=== PATIENT | female | born 1970 | race Caucasian/White ===

== ENCOUNTER 2022-05-01 13:56 | Outpatient (CLI) | payer BC, SELFPAY ==
--- NOTE | 2022-05-01 14:00 | CRLHL7_ITS ---
For Patients: As a result of the Century Cures Act, medical imaging exams and procedure reports are released immediately into your electronic medical record. You may view this report before your referring provider. If you have questions, please contact your health care provider. INDICATION: POST COITAL BLEEDING; EVAL FOR POSTMENOPAUSAL ABNORMALITY COMPARISON: none TECHNIQUE: 2D baez scale and color Doppler images were acquired of the pelvis using a transabdominal and transvaginal approach. FINDINGS: Sonographic images demonstrate a normal size and smooth outer contour of the uterus. Uterus measures 5.2 cm in length by 3.5 cm in AP diameter by 4.9 cm in transverse dimension. The myometrium has a normal uniform echotexture. The endometrial lining measures 10 mm in composite thickness. The right ovary measures 5.9 x 3.2 x 3.9 cm in size and the left ovary is not visualized. The right ovary demonstrates normal arterial and venous blood flow on color Doppler analysis. There is a simple anechoic right ovarian cyst measuring 3.5 x 2.5 x 4.0 cm. There are no suspicious fluid collections within the cul-de-sac. IMPRESSION: Endometrium is heterogeneous and measures 10 millimeters. 4 centimeter right ovarian cyst. Dictated by Ivan Gary MD @ 05/02/2022 8:58:20 AM (Electronically Signed)
== END 2022-05-01 13:57 | disposition home or self-care (01) ==
PROVIDERS: PCP Physician Assistant Medical; Visit Provider Physician Assistant Medical
DX: N93.0 Postcoital and contact bleeding (principal); N83.291 Other ovarian cyst, right side; N95.0 Postmenopausal bleeding
CPT/HCPCS: 76830; 76856

== ENCOUNTER 2022-05-04 10:58 | Outpatient (CLI) | payer BC, SELFPAY | END 2022-05-04 10:59 | disposition home or self-care (01) | LOC: LKVREF 05-05 10:55 | PROVIDERS: PCP Physician Assistant Medical; Visit Provider Physician Assistant Medical | DX: N95.0 Postmenopausal bleeding (principal); N83.201 Unspecified ovarian cyst, right side | CPT/HCPCS: 87086; 87186 ==

== ENCOUNTER 2022-05-24 16:55 | Outpatient (CLI) | payer BC, SELFPAY | END 2022-05-24 16:56 | disposition home or self-care (01) | LOC: LKVREF 16:57 | PROVIDERS: PCP Physician Assistant Medical; Visit Provider Physician Assistant Medical | DX: Z01.818 Encounter for other preprocedural examination (principal); R31.9 Hematuria, unspecified | CPT/HCPCS: 87086 ==

== ENCOUNTER 2022-05-31 10:20 | Day surgery (SDC) | payer BC, SELFPAY ==
[2022-05-31] MEDS: LACTATED RINGERS 1000 ML 1,000 ML 100 ML IV (09:00)
[2022-05-31 10:40] VITALS: BP 153/91; PULSE 98; RESP 16; TEMP 36.6; O2SAT 97
[2022-05-31 11:00] VITALS: BMI 34.9
[2022-05-31] MEDS: BUPIVACAINE 0.5% 30 ML INJECTION (12:50)
--- NOTE | 2022-05-31 13:11 | W.ANESCHARGE ---
Anesthesia Charges Start Date/Time Anesthesia Start Date: 05/31/22 Anesthesia Start Time: 12:25 Stop Date/Time Anesthesia Stop Date: 05/31/22 Anesthesia Stop Time: 13:06 Summary Emergency: No
[2022-05-31 13:15] VITALS: BP 123/76; PULSE 85; RESP 16; TEMP 36.9; O2SAT 96
--- NOTE | 2022-05-31 13:15 | W.PM.GYNPROC ---
Procedure Note Date Seen: 05/31/22 Procedure Details: Preop diagnosis: Postmenopausal bleeding Postop diagnosis: Postmenopausal bleeding Name of procedure: Hysteroscopy, dilation and curettage Surgeon: Gurwinder Rojas MD Clinical Education Specialist: None Complications: None EBL: 5 mL Drains: None Findings: Bimanual exam: Antevereted uterus of about 7cm, regular contour, no adnexal masses. Intrauterine cavity: Bilateral cornual openings seen, polypoid lesion seen at the fundal area of the uterus. Patient was taken to the OR were MAC anesthesia was administered without difficulty. She was placed in the dorsal lithotomy position with Charly type stirrups. An exam under anesthesia as described above. Patient was then prepared and draped in the normal sterile fashion. A bivalved speculum was inserted in the posterior aspect of the vagina. 0.25% Bupivacaine was injected at 2 and 11 o'clock a total of about 5mL utilized. A single-tooth tenaculum was used to grasp the anterior lip of the cervix. The uterus was carefully sounded to 7 cm. The cervical os was sequentially dilated to accommodate the 5 mm TrueClear hysteroscope using Hegar dilators. A 5 mm 30 degree TrueClear hysteroscope was introduced under direct visualization, and the uterus was distended with normal saline. Findings as above. Soft tissue incisor blade from TrueClear hysteroscope system was introduced under direct visualization and endometrial curettings performed with removal of polypoid lesion. Hysteroscope removed under direct visualization. Tenaculum was removed from the cervix and good hemostasis was noted at puncture sites. Patient tolerated the procedure well. Instrument and sponge counts were correct x2. The patient was awakened from MAC anesthesia and taken to the recovery room in a stable condition. The patient will go home after recovering from anesthesia and meeting all the criteria for discharge. She was given instruction regarding follow-up visit in 2 weeks at [facility] and instructions for pain medication. Fluid deficit: 100mL
[2022-05-31 13:44] VITALS: BP 142/90; PULSE 82; RESP 16; O2SAT 97
== END 2022-05-31 13:47 | disposition home or self-care (01) ==
PROVIDERS: PCP Physician Assistant Medical; Visit Provider Obstetrics & Gynecology
PROC: 0UDB8ZZ Extraction of Endometrium, Via Natural or Artificial Opening Endoscopic (ICD-10-PCS; CPT 58558; principal; 2022-05-31 11:45)
DX: N95.0 Postmenopausal bleeding (principal); N84.0 Polyp of corpus uteri
CPT/HCPCS: 58558; 00952; 36415; 84703; 85018; 88305; J1100; J2250; J2405; J2704; J3010; J3490; J7120

== ENCOUNTER 2022-08-07 11:11 | Outpatient (CLI) | payer BC, SELFPAY ==
[2022-08-07 13:44] LABS: Albumin* 4.3 g/dL (3.3-5.0)
[2022-08-07 13:47] LABS: Alkaline Phosphatase* 83 U/L (40-150); Bilirubin Direct* 0.3 mg/dL (0.0-0.5); Bilirubin Total* 0.4 mg/dL (0.1-1.5); Cholesterol* 188 mg/dL (90-199); HDL Cholesterol* 43 mg/dL (>=50); LDL Cholesterol Calculated 92 mg/dL (<100); Total Protein* 7.4 g/dL (6.0-8.3); Triglycerides* 264 mg/dL (40-149)
[2022-08-07 13:48] LABS: Alanine Aminotransferase* 25 U/L (4-35)
[2022-08-07 16:03] LABS: Aspartate Amino Transferase* 22 U/L (12-35)
== END 2022-08-07 11:12 | disposition home or self-care (01) ==
PROVIDERS: PCP Physician Assistant Medical; Visit Provider Physician Assistant Medical
DX: E78.5 Hyperlipidemia, unspecified (principal); E03.9 Hypothyroidism, unspecified
CPT/HCPCS: 80061; 80076; 84443

== ENCOUNTER 2022-09-11 08:09 | Outpatient (CLI) | payer BC, SELFPAY ==
--- NOTE | 2022-09-11 08:15 | CRLHL7_ITS ---
For Patients: As a result of the Century Cures Act, medical imaging exams and procedure reports are released immediately into your electronic medical record. You may view this report before your referring provider. If you have questions, please contact your health care provider. BILATERAL SCREENING MAMMOGRAM WITH COMPUTER-AIDED DETECTION AND TOMOSYNTHESIS TECHNIQUE: CC and MLO views were obtained. These mammographic images have been obtained using full-field digital technique. These mammographic images were interpreted with the benefit of computer-aided detection. Breast Tomosynthesis was used in this interpretation. COMPARISON FILM: 09/06/21, 07/19/20, 07/18/19. FINDINGS: The breasts are heterogeneously dense, which may obscure small masses IMPRESSION: There is no radiographic evidence for malignancy. ASSESSMENT: BI-RADS Category 2: Benign RECOMMENDATION: Routine screening mammogram in 1 year. A lay language report of this examination will be provided to the patient. Ivan Gary M.D. Diagnostic Radiologist [email or web address] SP/Dictated by: Ivan Gary MD @ 09/11/2022 12:35:00 PM (Electronically Signed)
== END 2022-09-11 08:10 | disposition home or self-care (01) ==
LOC: MAMMO 08:10
PROVIDERS: PCP Physician Assistant Medical; Visit Provider Obstetrics & Gynecology
DX: Z12.31 Encounter for screening mammogram for malignant neoplasm of breast (principal); R92.2 Inconclusive mammogram
CPT/HCPCS: 77063; 77067

== ENCOUNTER 2022-11-01 16:47 | Outpatient (CLI) | payer BC, SELFPAY ==
--- NOTE | 2022-11-01 17:00 | CRLHL7_ITS ---
For Patients: As a result of the Century Cures Act, medical imaging exams and procedure reports are released immediately into your electronic medical record. You may view this report before your referring provider. If you have questions, please contact your health care provider. CLINICAL HISTORY: F/U right ovarian cyst Comparison 05/01/2022 TECHNIQUE: 2D abez scale ultrasound. In addition color Doppler and spectral Doppler analysis was performed of the pelvis using a transabdominal and transvaginal approach. FINDINGS: The myometrium has a normal uniform echotexture and measures 5.2 x 3.5 x 4.3 cm. The endometrial lining appears normal and measures 6 mm in thickness. The right ovary measures 5.2 x 3.4 x 4.9 cm in size and the left ovary is absent. The right ovary demonstrates normal arterial and venous blood flow on color Doppler and spectral Doppler analysis. There are no suspicious fluid collections within the cul-de-sac. Simple anechoic right ovarian cyst measures 3.4 x 2.9 x 4.1 cm, previously measured 3.5 x 2.5 x 4.0 cm, unchanged. IMPRESSION: No significant interval change in simple right ovarian cyst measuring 4.1 cm. No torsion. Dictated by Ivan Gary MD @ 11/02/2022 9:14:18 AM (Electronically Signed)
== END 2022-11-01 16:48 | disposition home or self-care (01) ==
LOC: US 16:47
PROVIDERS: PCP Physician Assistant Medical; Visit Provider Obstetrics & Gynecology
DX: N83.201 Unspecified ovarian cyst, right side (principal)
CPT/HCPCS: 76830; 76856; 93976

== ENCOUNTER 2023-01-18 12:54 | Inpatient (IN) | payer BC, SELFPAY ==
[2023-01-18] VITALS (55 sets, daily range): BP systolic 116–167; BP diastolic 64–111; PULSE 78–106; RESP 10–24; TEMP 36.1–37.4; O2SAT 90–100; BMI 35.4; BMI 32.4
[2023-01-18] MEDS: LACTATED RINGERS 1000 ML 1,000 ML 100 ML IV ×3 (06:55→12:20)
[2023-01-18 07:53] LABS: Hemoglobin* 14.1 gm/dL (12.0-16.0)
[2023-01-18 08:12] LABS: Creatinine* 0.8 mg/dL (0.5-1.5); Est. Creatinine Clearance* 78.18; Estimated Glomerular Filt Rate 88 ml/min
[2023-01-18] MEDS: CEFAZOLIN 1 GM inj 3 GM IVP (08:25)
--- NOTE | 2023-01-18 08:34 | W.PM.NB ---
Nerve Block Nerve Block Time Seen by Provider: 08:30 Date Seen: 01/18/23 Type of block requested by surgeon for post-operative analgesia: TAP Side: bilateral Time out performed: Yes Verification of patient name: Yes Verification of date of : Yes Site marking: site marked Name of person performing procedure: Doe Continuous monitoring Was continuous monitoring of O2 sat, B/P, public health engineer, recorded every 15 minutes?: Yes Procedure Checklist: sterile prep, needles and gloves Ultrasound guided. Images saved: Yes Medications given in 5ml increments after negative aspiration: Marcaine %: 0.25 mL: 30 Needle gauge: 20 and Exparel mL: 10 Patient tolerated procedure well: Yes Additional comments: Needle noted adjacent to nerve Block Charges Block Charge (with Pro Fee): TAP Bilateral Use of Ultrasound Machine for Block: Yes- US Guidance/pain block
--- NOTE | 2023-01-18 08:35 | W.ANESCHARGE ---
Anesthesia Charges Start Date/Time Anesthesia Start Date: 01/18/23 Anesthesia Start Time: 08:17 Stop Date/Time Anesthesia Stop Date: 01/18/23 Anesthesia Stop Time: 13:02
[2023-01-18] MEDS: BUPIVACAINE 0.25% 30 ML INJECTION (09:05)
--- NOTE | 2023-01-18 10:37 | P.GSOP_ITS ---
Operative Note Date of procedure: 01/18/23 Type of Procedure: 1. Intraoperative consult for abdominal wall adhesions. 2. Laparoscopic converted to open hysterectomy-C OBGYN procedure note for more details. 3. Lysis of adhesions with repair of small bowel serosal tear. Indications: Patient was undergoing laparoscopic hysterectomy. I was asked by Dr. Funes to assist intraoperatively due to small bowel adhesions to the lower abdominal wall. Procedure Description: When I entered the operating room, the patient was already under general anesthesia with the abdomen prepped and draped. The umbilical port was already placed by Extruding Department Supervisor surgeons. The camera was advanced into the abdomen and a loop of small bowel was seen adherent to the lower abdominal wall near patient's previous incision. This appeared to be densely adherent. I attempted to retract the small bowel with soft jaw graspers but the adhesions were dense and was difficult to tell the plain between the small bowel and the abdominal wall. The decision was then made to convert to open hysterectomy. The lower midline Pfannenstiel incision was made through previous scar. Subcutaneous fat and anterior fascia were all divided with a scalpel by Dr. Funes. Hemostasis was achieved with cautery. Peritoneum and posterior fascia then was grasped near the pubic bone and the abdomen was entered with Metzenbaum scissors. Were able to palpate the loop of small intestine that was adherent to the midline. I then proceeded with lysis of adhesions. The small bowel loop was partially incarcerated through the posterior fascial opening and protruding between the rectus muscles. This loop was then mobilized off the rectus muscles with Metzenbaum scissors and cautery. The mobilized segment of small intestine was then examined and serosal tear was noted from our mobilization. This was oversewn with interrupted 3-0 silk sutures. The lumen of the small intestine was palpated and was patent. An adjacent loop of small intestine that was mobilized off the adherent loop with Metzenbaum scissors was also examined. There was a tiny serosal tear on the mesenteric side and that was oversewn with a single 3-0 silk suture. At this time no further adhesions were noted to the abdominal wall. I scrubbed out and Dr. Funes proceeded with her portion of the procedure. Please see her operative note for more details. Findings: Dense adhesions of small bowel to the lower abdominal wall in the area of her previous . Anesthesia: GETA Surgeon: Lyle Dejesus MD Estimated blood loss (mL): 2 Condition: stable
--- NOTE | 2023-01-18 10:44 | W.ANESCHARGE ---
Anesthesia Charges Start Date/Time Anesthesia Start Date: 01/18/23 Anesthesia Start Time: 08:17 Stop Date/Time Anesthesia Stop Date: 01/18/23 Anesthesia Stop Time: 13:02
[2023-01-18] MEDS: CEFAZOLIN 2 GM INJ IVP (12:10)
--- NOTE | 2023-01-18 12:14 | CRLHL7_ITS ---
For Patients: As a result of the Cures Act, medical imaging exams and procedure reports are released immediately into your electronic medical record. You may view this report before your referring provider. If you have questions, please contact your health care provider. Indication: INACCURATE INSTRUMENTS COUNT Technique: Portable abdomen one view IMPRESSION: No retained instruments. No bowel obstruction. Dictated by Ivan Gary MD @ 01/18/2023 2:24:48 PM (Electronically Signed)
[2023-01-18] MEDS: KETOROLAC 15 MG/ML inj IVP (12:17)
--- NOTE | 2023-01-18 13:02 | P.PCN_ITS ---
Procedure Note Time Seen by Provider: 13:02 <Emmy Bear MD - Last Filed: 01/18/23 13:05> Date Seen: 01/18/23 <Emmy Bear MD - Last Filed: 01/18/23 13:05> Date of procedure: 01/18/23 <Cheri Mccain MD - Last Filed: 01/18/23 13:06> Will [facility] bill your pro fee for this procedure?: Yes <Emmy Bear MD - Last Filed: 01/18/23 13:05> Procedure: legal support assistant op note: Preoperative diagnosis: 52-year-old with persistent right adnexal cyst, postmenopausal bleeding, history of endometriosis Postoperative diagnosis: Same: Ventral wall hernia, right endometrioma, pelvic adhesive disease. Procedure: Total laparoscopic hysterectomy converted to total abdominal hysterectomy, lysis of adhesions, right salpingo oophorectomy, diagnostic cystoscopy Surgeon: Cheri Rojas MD Button Puncher surgeon: Emmy Bernardo MD Consulting surgeon: Gumaro Dejesus MD Operative note: I was asked to assist Cheri Rojas with the patient's surgery. I aided in dissection, visualization, and obtaining hemostasis. Please see Dr. Rojas's note for complete details. <Emmy Bear MD - Last Filed: 01/18/23 13:05> Anesthesia: GETA and other (TAPS block) <Emmy Bear MD - Last Filed: 01/18/23 13:05> Surgeon: Cheri Mccain <Emmy Bear MD - Last Filed: 01/18/23 13:05> Button Puncher: Emmy Bear <Emmy Bear MD - Last Filed: 01/18/23 13:05> Pathology: specimen obtained, sent to pathology <Emmy Bear MD - Last Filed: 01/18/23 13:05> Condition: stable <Emmy Bear MD - Last Filed: 01/18/23 13:05>
--- NOTE | 2023-01-18 13:06 | W.PM.GYNPROC ---
Procedure Note Time Seen by Provider: 07:30 Date Seen: 01/18/23 Procedure Details: Preop diagnosis: Postmenopausal bleeding, proliferative endometrium, right ovarian cyst, history of endometriosis Postop diagnosis: Postmenopausal bleeding, proliferative endometrium, right adnexal simple cyst, right ovarian endometrioma, pelvic adhesions, ventral small bowel hernia with serosal tear repaired by general surgery. Name of procedure: Failed laparoscopic hysterectomy converted to open abdominal hysterectomy, diagnostic laparoscopy, right salpingo-oophorectomy, cystoscopy Surgeon: Gurwinder Mccain MD Professional Nursing Assistant: Regina Bear MD Complications: Small bowel serosal tear from lysis of adhesions to release small bowel hernia EBL: 300mL Drains: Arnold catheter Findings: Normal external genitalia, speculum exam: vagina w/o abnormal discharge, cervix w/o gross lesions or abnormal discharge, uterine sound 6cm. Diagnostic laparoscopy:grossly normal liver, stomach and diaphragm, small bowel loop herniated through peritoneum into rectus abdominis at the level of previous section scar. This impeded visualization of the pelvis to complete hysterectomy, general surgery assistance to try to release bowel laparoscopically but this was unsuccessful, please refer to general surgery note for further details. Open abdominal surgery: uterus retroverted of about 6cm, shifted towards the left pelvic sidewall, left cornual adhesions to the mesentery of the sigmoid colon. Right adnexa: simple cyst seen to be associated mostly to the right fallopian tube this measured about 3cm. Right ovary of about 2cm and adhered to the right pelvic sidewall with a small chocolate cyst. Thick adhesions from bladder reflection to the lower uterine segment. Cystoscopy: Bladder intact with air bubbles, no suture material present, bilateral ureteral jets seen. DESCRIPTION OF PROCEDURE: After obtaining informed consent, the patient was taken to the operating room where general anesthesia was obtained without difficulty. She was prepared and draped in the normal sterile fashion in the low dorsal lithotomy position. A Arnold catheter was inserted into the bladder and left to gravity drainage. A medium Graves open-sided speculum was introduced into the vagina. The cervix was visualized and grasped along its anterior lip with a single-tooth tenaculum. The uterus was gently sounded. Sound length was found to be 6 cm. No need for cervical dilation. I then placed a Medium VCare uterine manipulator. The tenaculum and speculum were removed. The green VCare cup was digitally pressed up against the cervix and then cinched in place with the blue accessory cup. I then changed gloves and my attention was turned to the abdomen. The inferior aspect of the umbilical fold was injected with 1% Lidocaine plain. A 5 mm vertical incision was then made within the umbilical fold using a scalpel. A direct entry technique was used, a 5 mm laparoscopic port with CO2 gas set at 5mmHg was introduced under direct visualization. The trocar was removed leaving the sleeve in place. The CO2 gas flow was turned to high flow to achieve pneumoperitoneum. The 5 mm laparoscope was used then to carefully inspect the abdomen and pelvis with findings noted above. Pictures were taken for documentation purposes. General surgery consult made right away for evaluation of previously described small bowel hernia. The patient was placed in Trendelenburg positioning. Two additional ports were placed in the right and left lower quadrants under direct visualization after first anesthetizing the skin and fascia with 1% Lidocaine plain. On the left side a 11mm port was utilized and on the right side a 5mm port placed. Please refer to Dr. Holcomb's note for additional details. Decision made to continue procedure via open abdominal surgery. A Pfannenstiel skin incision was made with a scalpel where the patient's prior incision was located. This incision was carried down to the underlying layer of fascia with the scalpel and Bovie. The fascia was incised in the midline and the incision extended laterally. The superior and inferior aspects of the fascial incision were grasped with Johan clamps and the underlying rectus muscles dissected off sharply. The rectus muscles were in the midline. The underlying peritoneum was identified and entered bluntly. The peritoneal incision was extended superiorly and inferiorly with good visualization of the bladder. Extensive lysis of adhesions and ventral hernia released and mobilized by general surgery as described in Dr. Holcomb's note. Before continuing with procedure Dr. Holcomb helped to close the right lower abdominal quadrant fascial defect from 11mm laparoscopic port utilizing Vicryl 0. The patient was then placed in some mild Trendelenburg positioning. The bowels were packed cephalad using a large moistened laparotomy sponge. The Sharan O retractor was placed in the incision. This provided excellent visualization of the pelvis. The pelvis was inspected with the findings noted above. Byers clamps were placed at the cornua bilaterally for traction. The right ureter was identified, the left ureter was not easily identified at the beginning due to adhesion of the uterus to the left pelvic sidewall. The right round ligament was grasped with Grand Cane and suture ligated with 0 Vicryl. Utilizing cautery the proximal round ligament was coagulated and cut. The anterior leaf of the broad ligament was opened to the midline from the right side. The right ovarian ligament was then isolated, clamped across with Thuderbeat coagulated and cut. Hemostasis was observed. Dissection of the right fallopian tube with cyst to the right pelvic sidewall was completed with Metzembaum scissors. This allowed identification of the right infundibulopelvic ligament and this was isolated, clamped with Anibal clamps, coagulated and transected with Thunderbeat device and also suture ligated utilizing Vicryl 0. Hemostasis was secured. The right ovary still with fine adhesions to the right pelvic sidewall and these were also released with blunt and sharp dissection with Metzembaum scissors, this created a small incision into the right ovary revealing a dark chocolate like fluid to be seen to come out from ovary. Right ovary and fallopian tube sent to pathology. The uterine vessels were skeletonized on the right side. The vessels were clamped across with a Anibal and a straight clamp, transected, and suture ligated. Excellent hemostasis was obtained. Attention was then turned to the left side. The left round ligament was grasped with Grand Cane and suture ligated with 0 Vicryl. Utilizing cautery the proximal round ligament was coagulated and cut. The anterior leaf of the broad ligament was opened to the midline from the left side. Adhesions from the left cornua to the mesentery of the sigmoid colon were released with blunt and sharp dissection utilizing Metzembaum. Small bleeding vessels were coagulated with cautery or suture ligated with Chromic 2-0 suture in figures of eight. The bladder was further pushed caudally with a sponge stick. The left uterine vessels were skeletonized and then clamped across with Anibal clamps, transected, and suture ligated. Excellent hemostasis was obtained. The remaining cardinal and uterosacral ligament attachments on both sides were clamped with curved Anibal clamps adjacent to the lower uterine segment and cervix, transected and suture ligated with 0 Vicryl. Excellent hemostasis was obtained. Two Anibal clamps were placed across the vaginal cuff angles. The uterus with attached cervix was then transected and passed off the field. The vaginal cuff angles were fixed with Anibal stitches of 0 Vicryl. The intervening vaginal cuff was closed with [id number] sutures of 0 Vicryl. The abdomen and pelvis were then copiously irrigated. Small bleeding vessels were isolated with DeBakey clamps and cauterized for hemostasis. Preparations were then made for cystoscopy. Fluorescein was administered intravenously along with the IV fluids. The Arnold catheter was removed. The patient was flattened out. Cystoscopy was performed using sterile normal saline as distending medium. The bladder was carefully inspected and noted to be free of filling defects or suture material. Both ureteral orifices were easily visualized and fluorescein tinged urine jets were noted from both sides. The cystoscope was then removed. The Arnold catheter was replaced into the bladder. Attention placed to the abdomen again. Multiple bleeding sites seen from areas of dissection were identified and managed with Chromic 2-0 sutures in figure of 8 fashion, hemostasis secured. Alcon was placed over raw tissue edges for additional hemostasis. All laparotomy sponges and instruments were then removed. The subfascial tissues were carefully inspected and hemostasis assured. The muscle area opened for release of ventral hernia/small bowel loop was seen to be oozing and utilizing Vicryl 3-0 suture in a continuous interlocking fashion the edge was approximated and hemostasis secured. The fascia was reapproximated in a running fashion with a looped 0 PDS suture. The subcutaneous tissues were copiously irrigated and hemostasis assured. The subcutaneous adipose layer was reapproximated with continuos sutures of 3-0 Vicryl, in 2 layers. The skin of all abdominal incisions was closed in a subcuticular fashion with 4-0 Monocryl. LiquiBand and a dressing were applied. The patient tolerated the procedure well. Sponge, lap, needle, instrument counts were reported as correct x2. The patient was taken to recovery room awake and in stable condition. She received 3 g of IV Ancef preoperatively and 2g of IV Ancef at the 4 hour maria esther of surgical time, 1g of TXA. PATHOLOGY SPECIMEN(S): Uterus and cervix, right ovary and fallopian tube. Time spent operating 4 hours.
[2023-01-18] MEDS: fentaNYL 100 MCG/2 ML inj 50 MCG IVP ×2 (13:26→13:35)
[2023-01-18] MEDS: HYDROmorphone 0.5 mg/0.5 ml inj IVP ×3 (14:19→18:09)
[2023-01-18] MEDS: ACETAMINOPHEN 325 MG TABLET 1000 MG PO (14:23)
[2023-01-18] MEDS: OXYCODONE 5 MG TABLET PO ×2 (14:25→19:55)
[2023-01-18] MEDS: ONDANSETRON 2 MG/ML inj 4 MG IVP (14:28)
[2023-01-18] MEDS: LACTATED RINGERS 1000 ML 1,000 ML 125 ML IV ×2 (14:48→22:23)
[2023-01-18] MEDS: PROCHLORPERAZINE 5 MG/ML VIAL IV (18:09)
[2023-01-18] MEDS: KETOROLAC 30 MG/ML inj IVP (19:24)
--- NOTE | 2023-01-18 19:59 | PC.NURSE ---
[id number]?Shift Summary? 262 J.M. 52 Total Laparoscopic Hysterectomy, bilateral salpingectomy? Hx: Right adnexal cyst, Postmenopausal bleeding, Endometriosis, Tubular adenoma of colon, Hep A, D&C, left salpingo-oophorectomy, Hypothyroidism, Vitamin D deficiency, Hyperlipemia, Anxiety? Procedure went longer than expected, had to switch from lap to open d/t adhesions. Came up around 1400. Has not been OOB. Needs IS training- was too sleepy to participate. Can be SLed when PO adequate. Had a bite or two of crackers and apple sauce. Has frozen treats in fridge. Can advance diet as tolerated. Can DC ball once ambulating. Lemon yellow output d/t contrast.?Post-op vitals done. was at bedside. On 1L for desating with sleep. Otherwise sating well on RA while awake. HTN and tachy. Afebrile. Pain was 10/10 upon arrival. Given 0.5 dilaudid x3, 5 mg oxy, Tylenol, ketorolac. Pain now 2-4/10 to abd. Some back pain from length of procedure.?Mepliex dressings to abd CDI. Heating pad and ice pack in place.
[2023-01-18] MEDS: ACETAMINOPHEN 500 MG TABLET 1000 MG PO (22:23)
[2023-01-19] MEDS: KETOROLAC 30 MG/ML inj IVP (01:05)
[2023-01-19 03:00] VITALS: RESP 16
[2023-01-19] MEDS: LEVOTHYROXINE 25 MCG TABLET 12.5 MCG PO (05:28)
[2023-01-19] MEDS: IBUPROFEN 600 MG TABLET PO ×4 (05:29→23:11)
[2023-01-19] MEDS: OXYCODONE 5 MG TABLET PO ×3 (06:19→18:39)
--- NOTE | 2023-01-19 06:50 | PC.NURSE ---
-: pleasant and cooperative. Calls appropriately. SBA. Rating pain in abd -09/01, see eMar. Pt walked halls x 1, DC?d ball, urinated 200mL since ball removal.?3 Mepis to abd CDI. Small amount of vaginal bleeding. VSS.
[2023-01-19 07:00] VITALS: BP 142/80; PULSE 96; RESP 16; TEMP 36.4; O2SAT 96
[2023-01-19 07:05] LABS: Hemoglobin* 11.3 gm/dL (12.0-16.0)
[2023-01-19 07:20] LABS: Creatinine* 0.8 mg/dL (0.5-1.5); Est. Creatinine Clearance* 86.93; Estimated Glomerular Filt Rate 88 ml/min
--- NOTE | 2023-01-19 07:54 | P.GYNPN_ITS ---
HOME FURNISHINGS SALES REPRESENTATIVE - A/P Postoperative Procedures: Procedures Operation Date: 01/18/23 08:40 Actual Procedure Side Surgeon p Diagnostic Laparoscopy, Total Abdominal Hysterectomy, Right Salpingo- oophorectomy, Cystoscopy Cheri Mccain MD s Lysis of Adhesions, Repair of small bowel serosal tear Lyle Dejesus MD Postoperative day: 1 Postoperative status: doing well (Pain is under control, she has been able to ambulate this morning w/o lightheadeness, SOB, ball removed and has been urinating well, has not passed flatus yet, will continue to advance diet, encouraged ambulation, will monitor for flatus, abdominal exam this morning normal. ) Postoperative plan: routine post-op care, ambulate and advance diet Time Spent With Patient Time: Total time spent is greater than 50% in coordination of care (as documented) at patient's floor/unit and/or counseling patient: Time with patient: less than 15 minutes HOME FURNISHINGS SALES REPRESENTATIVE- PN:Subj Post-Op Subjective Time Seen by Provider: 07:54 Date Seen: 01/19/23 Post Operative Details: Post-operative day number 1: status post diagnostic laparoscopy, total abdominal hysterectomy, right salpingo-oophorectomy, lysis of adhesions, small bowel serosal tear repair by general surgery Subjective: patient reports feeling better, pain is well controlled, ambulating well, voiding without difficulty and patient is tolerating oral intake HOME FURNISHINGS SALES REPRESENTATIVE-PN: Obj Exam Physical Exam: Vital signs: Temp Pulse Resp BP Pulse Ox O2 Del Method O2 Flow Rate 97.6 F 101 H 16 133/69 95 Room Air 1 01/18/23 22:47 01/18/23 22:47 01/19/23 03:00 01/18/23 22:47 01/18/23 22:47 01/18/23 22:47 01/18/23 19:20 Narrative: VITAL SIGNS: As noted above. GENERAL APPEARANCE: Alert, cooperative female in no acute distress. MOOD & AFFECT: Normal. Chest: Lungs clear to auscultation bilaterally, regular rate and rhythm of heart. ABDOMEN: Soft, non-distended and mildly tender to palpation, no guarding, no rebound. Positive bowel sounds. Incisions covered, dressing is dry, no evident surrounding erythema or abnormal discharge. :Minimal spotting. EXTREMITIES: Nonedematous. Well perfused. Nontender. Urinary Catheter Management: Urethral: Cath placed during this visit: yes Urethral indwelling: No Insertion date: 01/18/23 Insertion time: 08:59 HOME FURNISHINGS SALES REPRESENTATIVE - PN: Obj Data Labs Labs: Laboratory Results - last 24 hr 01/18/23 01/18/23 01/19/23 07:35 07:37 06:42 Hgb 14.1 11.3 L Creatinine 0.8 0.8 Estimated Creat Clear 78.18 86.93 Estimated GFR 88 88 Blood Type O Positive Antibody Screen NEGATIVE
[2023-01-19] MEDS: ACETAMINOPHEN 500 MG TABLET 1000 MG PO ×3 (09:14→21:48)
[2023-01-19] MEDS: DOCUSATE SODIUM 100 MG CAPSULE PO ×2 (09:15→21:48)
[2023-01-19] MEDS: ESCITALOPRAM 10 MG TABLET 20 MG PO (09:15)
[2023-01-19 11:00] VITALS: BP 128/73; PULSE 91; RESP 16; TEMP 36.4; O2SAT 96
[2023-01-19] MEDS: SIMETHICONE 80 MG TAB.CHEW 160 MG PO ×2 (11:05→16:22)
[2023-01-19 15:00] VITALS: BP 140/76; PULSE 83; RESP 16; TEMP 36.6; O2SAT 94
--- NOTE | 2023-01-19 19:33 | PC.NURSE ---
Shift note: Pt independent, regular diet, ambulating without difficulty. VS WNL and LS COA. pain 3/10, scheduled and PRN's given. Some c/o of bloating/feeling gassy, Simethicone given PRN. Pt reports flatus and is voiding regularly. Surgical dressings to abdomen C,D,&I.
[2023-01-19 22:21] VITALS: BP 138/82; PULSE 85; RESP 16; TEMP 36.3; O2SAT 95
[2023-01-19 22:24] VITALS: PULSE 85; RESP 16
[2023-01-20 03:00] VITALS: BP 144/89; PULSE 83; RESP 16; TEMP 36.4; O2SAT 92
[2023-01-20] MEDS: ACETAMINOPHEN 500 MG TABLET 1000 MG PO (04:57)
[2023-01-20] MEDS: IBUPROFEN 600 MG TABLET PO ×2 (04:57→10:46)
[2023-01-20] MEDS: LEVOTHYROXINE 25 MCG TABLET 12.5 MCG PO (05:30)
--- NOTE | 2023-01-20 06:27 | PC.NURSE ---
19-07: pleasant and cooperative. Pain well controlled with Tylenol and Ibuprofen, 0-1/10. Pt stating passing flatus frequently. No c/o gas pains. VSS. Mepi?s to abd CDI.
[2023-01-20 07:00] VITALS: BP 150/87; PULSE 76; RESP 16; TEMP 36.7; O2SAT 97
--- NOTE | 2023-01-20 08:07 | P.DS_ITS ---
DS: Providers Provider Time Seen by Provider: 08:15 Date Seen: 01/20/23 Date of admission: 01/18/23 12:54 Primary care physician: Sherice Manzo PA-C Admitting Clinician: Cheri Mccain MD Consults: Lyle Dejesus MD Attending Physician on discharge: Cheri Mccain MD DS: Diagnosis Discharge Diagnosis (1) Status post total abdominal hysterectomy: Status: Acute Problem details: TLH converted to LEANDRA/RSO/OLAYINKA/diagnostic cystoscopy (2) Ventral hernia without obstruction or gangrene: Status: Acute RAM PRESS OPERATOR-Discharge Summary Hospital Course Hospital Course Narrative: Esteban is a 52 year old admitted on 01/18/2023 for scheduled total laparoscopic hysterectomy, possible total abdominal hysterectomy, right salpingo oophorectomy and diagnostic cystoscopy. Indication for surgery: History of endometriosis and postmenopausal bleeding. Intraoperative findings were notable for ventral hernia with a loop of small bowel within it without evidence of obstruction or gangrene, large amount of pelvic adhesions secondary to endometriosis, small endometrioma on the right ovary, 2-3 cm paratubal cyst, left ovary and tube surgically absent from pre vious left salpingo oophorectomy, normal diagnostic cystoscopy. She had an uncomplicated surgery. Postoperative course has been uneventful. Vitals have been stable. She has remained afebrile. Today, on postoperative day 2, she reports the pain is well controlled. She has been able to ambulate Without difficulty. She is tolerating regular diet. She is passing flatus. Arnold catheter has been removed, and she is voiding without difficulty. Labs: Preoperative hemoglobin 14.1, postoperative hemoglobin 11.3. Time Spent with Patient Time attestation: Total time spent providing and/or coordinating discharge services: RAM PRESS OPERATOR - Exam Physical Exam: Vital signs: Temp Pulse Resp BP Pulse Ox O2 Del Method O2 Flow Rate 97.5 F L 83 16 144/89 H 92 Room Air 1 01/20/23 03:00 01/20/23 03:00 01/20/23 03:00 01/20/23 03:00 01/20/23 03:00 01/20/23 03:00 01/20/23 03:00 Narrative: General: Alert and oriented x3. Pleasant, woman in no acute distress. Vital signs: See EMR. Heart: Regular rate and rhythm without gallop, rub or murmur. Chest: Clear to auscultation bilaterally. Abdomen: Soft, nontender, nondistended with normal bowel sounds throughout. No CVA or flank tenderness. Incision(s): Clean, dry and intact w/ sutures and skin adhesive. Ecchymosis at the left apex of the laparotomy incision and inferior to the left lower quadrant laparoscopic incision. Otherwise well-healed. Pelvic: Minimal vaginal bleeding, remainder of pelvic exam deferred. Extremities: No pain, edema, cyanosis or clubbing. RAM PRESS OPERATOR - DS: Data Procedures Procedures: Procedures Operation Date: 01/18/23 08:40 Actual Procedure Side Surgeon p Diagnostic Laparoscopy, Total Abdominal Hysterectomy, Right Salpingo- oophorectomy, Cystoscopy Cheri Mccain MD s Lysis of Adhesions, Repair of small bowel serosal tear Lyle Dejesus MD Discharge Plan Discharge Disposition: Home, Self-Care Date of Admission: 01/18/23 12:54 Attending Provider on Discharge: Emmy Bear Consulting Providers: Lyle Dejesus Primary Care Provider: Sherice Manzo Condition: Improved Anticipated Discharge Date/Time: 01/20/23 12:00 Discharge Medications: New docusate sodium 100 mg Capsule 100 mg PO BID PRN (Reason: Constipation) Qty: 100 0RF ibuprofen 600 mg Tablet 600 mg PO Q6H Qty: 30 0RF oxycodone 5 mg Tablet 5 mg PO 3XD PRN (Reason: Moderate Pain) Qty: 21 0RF Continued cran-C-B.coag-FOS-L.acid-L.rha 250-30-39.5 mg capsule PO cholecalciferol (vitamin D3) 50 mcg (2,000 unit) capsule 100 mcg PO QDAY atorvastatin 20 mg tablet 20 mg PO .hs Qty: 90 3RF levothyroxine 25 mcg tablet 12.5 mcg PO QDAY Qty: 45 3RF escitalopram oxalate 20 mg tablet 20 mg PO QDAY Qty: 90 3RF Discharge Orders: Discharge Order (Routine); Ordered 01/20/23 Ordered By: Emmy Bear Patient Education: Hypertension (GEN), Hysterectomy (DC) Additional Instructions: ACTIVITY RESTRICTIONS: * Nothing vaginally for 6 weeks: no tampons/intercourse * No driving while taking narcotic pain medication during the day. 1-2 weeks. Okay to be the passenger anytime. * Lifting restriction: Maximum of 20 pounds for 6 weeks. * High impact or core exercises: 6 weeks. * Submerge the incision in water (bath/pool/arizmendi): 2 weeks. * Off of work/school for a minimum of 6 weeks NO RESTRICTIONS for: * Walking * Going up/down stairs * Showering Symptoms to report to doctor: -Bleeding that saturates more than one pad per hour ?-Passing clots larger than the size of a golf ball ?-Pain not relieved by prescribed medication ?-Fever above 100.4 degrees Fahrenheit ?-A foul vaginal odor ?-Severe headache that doesn't improve after taking medications ?-Decrease in urination or painful, frequent urinating ?-Chest pain ?-Shortness of breath ?-Tenderness or pain with redness and/swelling in the calf(s) of your leg Follow-up Appointments: [facility]. [facility] with [facility] Rojas for postop visits in 2 and 6 weeks. 2. [facility] for evaluation of high blood pressure w/in 4 weeks. Activity Level: Activity as Tolerated Discharge Diet: Regular Follow Up Appointments: Cheri Mccain MD [Staff Physician] - Sherice Manzo PA-C [Primary Care Provider] - Forms: MyHealth Info Instructions
[2023-01-20] MEDS: ESCITALOPRAM 10 MG TABLET 20 MG PO (08:47)
--- NOTE | 2023-01-20 10:54 | PC.NURSE ---
Pt friendly and cooperative. Moving independently and rates pain 2/10. PRN Tylenol alternating with scheduled Ibuprofen, pt has declines Oxy this morning. Tolerating regular diet well and voiding regularly. Mepilex dressings to abdomen removed this morning by MD and sites are well approximated and free of drainage. Pt was discharged to home via wheelchair in the care of her at 10:56. Pt and verbalized understanding of discharge instructions and follow up appointments.
== END 2023-01-20 10:56 | disposition home or self-care (01) | DRG 513 ==
LOC: OR 16:46 → MEDSURG 16:46
PROVIDERS: Surgery; Admitting Provider Obstetrics & Gynecology; PCP Physician Assistant Medical; Visit Provider Obstetrics & Gynecology
PROC: 0UT94ZZ Resection of Uterus, Percutaneous Endoscopic Approach (ICD-10-PCS; principal; 2023-01-18 08:30)
PROC: 0DNW0ZZ Release Peritoneum, Open Approach (ICD-10-PCS; CPT 49000; 2023-01-18 08:30)
DX: N95.0 Postmenopausal bleeding (principal); N80.121 Deep endometriosis of right ovary; N83.291 Other ovarian cyst, right side; N73.6 Female pelvic peritoneal adhesions (postinfective); K43.9 Ventral hernia without obstruction or gangrene; Z53.31 Laparoscopic surgical procedure converted to open procedure; K91.71 Accidental puncture and laceration of a digestive system organ or structure during a digestive system procedure; Z90.721 Acquired absence of ovaries, unilateral; Z90.79 Acquired absence of other genital organ(s); E03.9 Hypothyroidism, unspecified; E55.9 Vitamin D deficiency, unspecified; E78.5 Hyperlipidemia, unspecified; F41.9 Anxiety disorder, unspecified; G89.18 Other acute postprocedural pain
CPT/HCPCS: 00840; 36415; 64488; 74018; 76942; 82565; 85018; 86850; 86900; 86901; 88307; A9270; C9290; J0330; J0690; J0780; J1100; J1170; J1885; J2250; J2370; J2405; J2704; J3010; J3490; J7120

== ENCOUNTER 2023-09-10 08:12 | Outpatient (CLI) | payer BC, SELFPAY ==
--- OUTSIDE RECORDS SUMMARY | 2023-09-10 15:36 | XMS_ITS | Clinical Summary ---
Author Name Unknown Organization Formerly [facility] Address [address] [address] Care Team Providers Care Metal Fabricating Inspector Name Role Phone Liang Ricketts APRN, DERIAN Primary Care Provid er Source Comments You are receiving this document as you are listed as the primary care provider,follow-up provider, or the patient has been referred to you for consultation.This is in compliance with the Medicare and[facility] EHR Incentive Program,which states Providers who transition their patient to another setting of careor provider of care or refers their patient to another provider of care shouldprovide summary care record for each transition of care or referral. [facility] Allergies Active Allergy Reactions Criticality Noted Date Comments Other 04/25/2005 PN: LW Other1: -NKA Penicillins 06/02/2005 PN: LW Reaction: rash Medications Medication Sig Dispensed Refills Start Date End Date Status Multiple Vitamins-Minerals (MULTIVITAMIN OR) Take 1 tablet by mouth daily (every 24 hours). 100 13 04/13/2007 Active Calcium Carb-Cholecalciferol (CALCIUM 500 +D) 500-400 MG-UNIT TABS Take by mouth. LW Comment:UNSURE OF DOSE 12/27/2009 Active cholecalciferol (AKA VITAMIN D3) 1000 UNITS tablet Take 1 tablet by mouth daily (every 24 hours). 90 3 12/27/2009 Active Active Problems Problem Noted Date Diagnosed Date Endometriosis 03/15/2011 Malignant neoplasm of skin 03/02/2008 Overview: Basal Cell Ca Skin NOS Immunizations Name Administration Dates Next Due Flu Vac Preserv Free (3+yrs) 03/18/2009,06/19/20 06,06/19/2005 Influenza LAIV (Nasal, 2-49 yrs) 05/11/2008,04/22 Influenza, Unspecified Formulation 06/23/2003 Family History Medical History Relation Name Comments Diabetes Father Heart Disease Father High Cholesterol Father Cancer Mother skin Cancer Maternal Grandfather Osteoporosis Maternal Grandmother Cancer Paternal Grandfather Cancer Paternal Grandmother BRCA 1/2 Negative Family History Cancer, Breast Negative Family History Cancer, Colon Negative Family History Cancer, Endometrial Negative Family History Cancer, Ovary Negative Family History Irlanda Syndrome Negative Family History Diethylstilbestrol Exposure Negative Family History Li-Fraumeni Syndrome Negative Family History Relation Name Status Comments Father Mother Maternal Grandfather Maternal Grandmother Paternal Grandfather Paternal Grandmother Social History Tobacco Use Types Packs/Day Years Used Date Smoking Tobacco: Never Alcohol Use Standard Drinks/Week Comments Yes 0.8 (1 standard drin k = 0.6 oz pure alcohol) Alcoholic Drinks/day: Amount:1-2 drinks; Freq:=< Monthly; Sex and Gender Information Value Date Recorded Sex Assigned at Not on file Gender Identity Not on file Sexual Orientation Not on file Last Filed Vital Signs Vital Sign Reading Time Taken Comments Blood Pressure 134/80 07/01/2013 3:52 PM FRESCO ARTIST Pulse 74 07/01/2013 3:52 PM FRESCO ARTIST Temperature 36.7 ??C (98.1 ??F) 07/06/2007 7:54 AM CS T C: 36.7 C Respiratory Rate 16 07/06/2007 7:54 AM FRESCO ARTIST Oxygen Saturation - - Inhaled Oxygen Concentration - - Weight 88.5 kg (195 lb) 07/01/2013 3:52 PM FRESCO ARTIST Height 175.3 cm (5' 9) 07/01/2013 3:52 PM FRESCO ARTIST Body Mass Index 28.8 07/01/2013 3:52 PM FRESCO ARTIST Plan of Treatment Health Maintenance Due Date Last Done Comments Colon Cancer Screening Plan Due 1970 Hep C Screening (Preventive Services) 1970 Adult Preventive Visit 1986 DTaP/Tdap/Td (1 - Tdap) 11/01/1987 HepB (1) 11/01/1987 Cervical Cancer Screening Due 05/07/2012 05/06/2012, 03/14/2010, 03/04/2009, Additional history exists Cholesterol 03/15/2016 03/15/2011, 02/21, 03/04/2009, Additional history exists Zoster/Shingles (1 of 2) 2018 Mammogram 07/18/2019 07/18/2018, 03/2017, 06/14/2016, Additional history exists COVID-19 Vaccine ( season) 2023 09/25/2020, 08/28/2020 Influenza (#1) 2023 05/03/2020, 11/2018, 04/30/2018, Additional history exists HIV Screening (Preventive Services) Completed 05/19/2005, 08/12/2004, 04/15/2002 HepA Aged Out No longer eligi ble based on patient's age to complete this topic Hib Aged Out No longer eligi ble based on patient's age to complete this topic IPV (Polio) Aged Out No longer eligi ble based on patient's age to complete this topic MCV4 Aged Out No longer eligi ble based on patient's age to complete this topic Pneumococcal Aged Out No longer eligi ble based on patient's age to complete this topic Procedures Procedure Name Priority Date/Time Associated Diagnosis Comments MM MAMMOGRAM SCREENING BILAT W CAD Routine 07/18/2018 9:36 AM FRESCO ARTIST Visit for screening mammogram ANATOMICAL PATH LIQUID BASED Routine 05/06/2012 12:00 PM CDT LIPID PANEL & DIRECT LDL (IF NEEDED) Routine 03/15/2011 7:54 AM CDT Screening for lipoid disorders HIV ANTIBODY Routine 05/19/2005 10:45 AM CDT from Last 3 Months or Most Recently Relevant to Health Maintenance Results * (ABNORMAL) MM Mammogram Screening Bilat W CAD (07/18/2018 9:36 AM FRESCO ARTIST) Anatomical Region Laterality Modality Breast Bilateral Mammography Impressions 07/18/2018 10:23 AM FRESCO ARTIST : ACR BI-RADS Category 0: Need Additional Imaging Evaluation RECOMMENDATION: Additional Mammographic Images and Ultrasound of the right breast. The results and recommendations of this examination will be communicated to the patient and the imaging center will attempt to schedule any recommended follow up with the patient. Narrative 07/18/2018 10:23 AM FRESCO ARTIST MM MAMMOGRAM SCREENING BILAT W CAD performed on 07/18/18 Compared to: 06/30/2017 MM Mammogram Screening Bilat W CAD, 06/14/2016 MM Mammogram Screening Bilat W CAD, and 06/02/2015 MM Mammogram Screening Bilat W CAD FINDINGS: Bilateral screening mammogram was performed with the assistance of Computer-Aided Detection. The breasts are heterogeneously dense, which may obscure small masses. There is an asymmetry in the right breast at the 10 o'clock position at middle depth. The remainder of the breast tissue is unremarkable. Cecelia Mcdermott APRN, INFORMATION TECHNOLOGY COORDINATOR RAD CORNELL * Pap Smear (05/06/2012 12:00 PM CDT) 05/06/2012 12:0 0 PM CDT Narrative HP CONVERSION - 05/10/2012 3:12 PM CDT Final GYNECOLOGICAL CYTOLOGY REPORT Pathology #: [id number] ?Date Obtained: 05/06/2012 ? Date Received: 05/07/2012 INTERPRETATION/RESULTS: Negative for Intraepithelial Lesion or Malignancy SPECIMEN ADEQUACY: Satisfactory for Evaluation. ??Endocervical cells/transformation zone component present. Verified on 05/10/2012 ??by MINIE BACCAM, CT(ASCP) (electronic signature) CLINICAL NOTES: ? LMP: Not Stated. LIQUID BASED PAP SMEAR SPECIMEN TYPE: ?CERVICAL WITH REFLEX TO HPV IF ASCUS PLEASE NOTE: The pap smear is a screening test designed to aid in the detection of cervical cancer and its precursor lesions. It is not a diagnostic procedure and should not be used as the sole means of detecting cervical cancer. Both false-positive and false-negative reports may occur. ? End of Report Marcelino Quesada MD LAB_1 HP CONVERSION * (ABNORMAL) Lipid Panel and Direct LDL(If Needed) (03/15/2011 7:54 AM CDT) Cholesterol 210(H) 0 - 200 mg/dL HP CONVERSION Triglycerides 235(H) 0 - 149 mg/dL HP CONVERSION HDL Cholesterol 68 >39 mg/dL HP CONVERSION Cholesterol/HDL Ratio Screen 3.1 HP CONVERSION LDL Calculated 95 19 - 130 mg/dL HP CONVERSION Hours Fasting 13 HP CONVERSION 03/15/2011 7:54 AM CDT 03/15/2011 7:54 AM CDT Narrative HP CONVERSION - 03/15/2011 9:13 AM CDT Performed at [facility], [address] [place] [address] Marcelino Quesada MD LAB_1 HP CONVERSION * HIV Antibody (05/19/2005 10:45 AM CDT) HIV 1/HIV 2 Non Reac Non Reac HP CONVERSION 05/19/2005 10:4 5 AM CDT Bri Palomares APRN, INFORMATION TECHNOLOGY COORDINATOR LAB_1 Performing Organization Address City/[facility]/ZIP Co de Phone Number HP CONVERSION from Last 3 Months or Most Recently Relevant to Health Maintenance Care Teams Metal Fabricating Inspector Relationship Specialty Start Date End Date Liang Ricketts, REST ROOM MAID, INFORMATION TECHNOLOGY COORDINATOR [id number] [place] [id number] PCP - General 10/24/10
== END 2023-09-10 08:13 | disposition home or self-care (01) ==
LOC: NFLDREF 15:35
PROVIDERS: PCP Physician Assistant Medical; Referring Provider Physician Assistant Medical; Visit Provider Physician Assistant Medical
DX: E03.9 Hypothyroidism, unspecified (principal); E55.9 Vitamin D deficiency, unspecified; E78.5 Hyperlipidemia, unspecified; Z13.228 Encounter for screening for other metabolic disorders
CPT/HCPCS: 80053; 80061; 82306; 84443

== ENCOUNTER 2023-09-18 18:10 | Outpatient (CLI) | payer BC, SELFPAY ==
--- NOTE | 2023-09-18 18:40 | MM_ITS ---
Patient: BASILIO BOYCE Facility:?[facility] Patient ID:?[id number] Site Patient ID:?[id number]. Site :?[id number] Study:?XRay-Breast Bilateral 3D W/CAD-09/18/2023 7:17:11 PM Ordering Physician:?Sherice Manzo Final Report: BILATERAL SCREENING MAMMOGRAM WITH COMPUTER-AIDED DETECTION AND TOMOSYNTHESIS TECHNIQUE: CC and MLO views were obtained. These mammographic images have been obtained using full-field digital technique. These mammographic images were interpreted with the benefit of computer-aided detection. Breast Tomosynthesis was used in this interpretation. COMPARISON FILM: 09/11/22, 09/09/21, 09/06/19. FINDINGS: There are scattered areas of fibroglandular density. IMPRESSION: There is no radiographic evidence for malignancy. ASSESSMENT: BI-RADS Category 1: Negative RECOMMENDATION: Routine screening mammogram in 1 year. A lay language report of this examination will be provided to the patient. Ivan Gray M.D. Diagnostic Radiologist [email or web address] DSM/sp R& Transcribed: 2:15 p.m. SP/Dictated by: Ivan Gary MD @ 09/19/2023 10:24:00 AM Signed by:?Ivan Gary MD @09/19/2023 2:26:24 PM (Electronic Signature)
== END 2023-09-18 18:11 | disposition home or self-care (01) ==
LOC: MAMMO 18:10
PROVIDERS: PCP Physician Assistant Medical; Visit Provider Physician Assistant Medical
DX: Z12.31 Encounter for screening mammogram for malignant neoplasm of breast (principal)
CPT/HCPCS: 77063; 77067

== ENCOUNTER 2023-10-14 08:59 | Outpatient (CLI) | payer BC, SELFPAY | END 2023-10-14 09:00 | disposition home or self-care (01) | LOC: NFLDREF 10-15 06:42 | PROVIDERS: PCP Physician Assistant Medical; Referring Provider Physician Assistant Medical; Visit Provider Physician Assistant | DX: R35.0 Frequency of micturition (principal); R10.9 Unspecified abdominal pain | CPT/HCPCS: 87086 ==

== ENCOUNTER 2023-10-29 16:52 | Outpatient (CLI) | payer BC, SELFPAY ==
--- OUTSIDE RECORDS SUMMARY | 2023-10-29 16:54 | XMS_ITS | Clinical Summary ---
Author Name Unknown Organization [facility] Address [address], [place] [address] Care Team Providers Care Barn Manager Name Role Phone Liang Ricketts APRN, DERIAN Primary Care Provid er Source Comments You are receiving this document as you are listed as the primary care provider,follow-up provider, or the patient has been referred to you for consultation.This is in compliance with the Medicare and[facility] Hospital[facility]id EHR Incentive Program,which states Providers who transition their patient to another setting of careor provider of care or refers their patient to another provider of care shouldprovide summary care record for each transition of care or referral. [facility] Allergies Active Allergy Reactions Criticality Noted Date [...] Family History Cancer, Ovary Negative Family History Ellamore Syndrome Negative Family History Diethylstilbestrol Exposure Negative [...] Comments Blood Pressure 134/80 07/01/2013 3:52 PM PILE TRIMMER Pulse 74 07/01/2013 3:52 PM PILE TRIMMER Temperature 36.7 ??C (98.1 ??F) 07/06/2007 7:54 AM CS T C: 36.7 C Respiratory Rate 16 07/06/2007 7:54 AM PILE TRIMMER Oxygen Saturation - - Inhaled Oxygen Concentration - - Weight 88.5 kg (195 lb) 07/01/2013 3:52 PM PILE TRIMMER Height 175.3 cm (5' 9) 07/01/2013 3:52 PM PILE TRIMMER Body Mass Index 28.8 07/01/2013 3:52 PM PILE TRIMMER Plan of Treatment Health Maintenance Due Date [...] BILAT W CAD Routine 07/18/2018 9:36 AM PILE TRIMMER Visit for screening mammogram ANATOMICAL PATH LIQUID BASED Routine 05/06/2012 12:00 PM CDT LIPID PANEL & DIRECT LDL (IF NEEDED) Routine 03/15/2011 7:54 AM CDT Screening for lipoid disorders HIV ANTIBODY Routine 05/19/2005 10:45 AM CDT from Last 3 Months or Most Recently Relevant to Health Maintenance Results * (ABNORMAL) MM Mammogram Screening Bilat W CAD (07/18/2018 9:36 AM PILE TRIMMER) Anatomical Region Laterality Modality Breast Bilateral Mammography Impressions 07/18/2018 10:23 AM PILE TRIMMER : ACR BI-RADS Category 0: Need Additional Imaging Evaluation RECOMMENDATION: Additional Mammographic Images and Ultrasound of the right breast. The results and recommendations of this examination will be communicated to the patient and the imaging center will attempt to schedule any recommended follow up with the patient. Narrative 07/18/2018 10:23 AM PILE TRIMMER MM MAMMOGRAM SCREENING BILAT W CAD performed [...] breast tissue is unremarkable. Cecelia Mcdermott APRN, SAUSAGE GRINDER RAD CORNELL * Pap Smear (05/06/2012 12:00 PM CDT) 05/06/2012 12:0 0 PM CDT Narrative HP CONVERSION - 05/10/2012 3:12 PM CDT Final GYNECOLOGICAL CYTOLOGY REPORT Pathology #: [id number] ?Date Obtained: 05/06/2012 ? Date Received: 05/07/2012 [...] - 03/15/2011 9:13 AM CDT Performed at [facility], [address] [place] [address] Marcelino Quesada MD LAB_1 HP CONVERSION * HIV Antibody (05/19/2005 10:45 AM CDT) HIV 1/HIV 2 Non Reac Non Reac HP CONVERSION 05/19/2005 10:4 5 AM CDT Bri Palomares APRN, SAUSAGE GRINDER LAB_1 Performing Organization Address City/[facility]/ZIP Co de Phone Number HP CONVERSION from Last 3 Months or Most Recently Relevant to Health Maintenance Care Teams Barn Manager Relationship Specialty Start Date End Date Liang Ricketts, CONTENT DEVELOPMENT MANAGER, SAUSAGE GRINDER [address] [place] [id number] PCP - General 10/24/10
--- NOTE | 2023-10-29 17:00 | US_ITS ---
Patient: BASILIO BOYCE Facility:?[facility] Patient ID:?[id number] Site Patient ID:?[id number]. Site :?[id number] Study:?US-Thyroid -10/29/2023 5:52:09 PM Ordering Physician:?Sherice Manzo Final Report: INDICATION: Neck Fullness COMPARISON: 02/23/2021 TECHNIQUE: Holland scale and color Doppler images were acquired of the thyroid gland. FINDINGS: The thyroid gland demonstrates diffusely heterogeneous echogenicity and has a lobular outer contour. The right lobe measures 5.4 x 2.1 x 2.2 cm and the left lobe measures 5.8 x 2.1 x 1.3 cm in size. Isthmus measures 6 millimeters. There are no suspicious masses or nodules. The color Doppler images demonstrate normal vascularity. There is no evidence of cervical lymphadenopathy or parathyroid mass. IMPRESSION: Diffusely heterogeneous thyroid without dominant or suspicious nodule. Dictated by Ivan Gary MD @ 10/31/2023 5:48:19 AM Signed by:?Ivan Gary MD @10/31/2023 5:48:19 AM (Electronic Signature)
== END 2023-10-29 16:53 | disposition home or self-care (01) ==
LOC: US 16:52
PROVIDERS: PCP Physician Assistant Medical; Visit Provider Physician Assistant Medical
DX: E07.89 Other specified disorders of thyroid (principal)
CPT/HCPCS: 76536

== ENCOUNTER 2024-01-16 08:05 | Outpatient (CLI) | payer BC, SELFPAY ==
--- OUTSIDE RECORDS SUMMARY | 2024-01-18 10:07 | XMS_ITS | Clinical Summary ---
Author Organization [facility] Address [address] [place] [id number] Care Team Providers Care Diesel Truck Technician Name Role Phone Liang Ricketts APRN, DERIAN Primary Care Provid er Source Comments You are receiving this document as you are listed as the primary care provider,follow-up provider, or the patient has been referred to you for consultation.This is in compliance with the Medicare andMedicaid EHR Incentive Program,which states Providers who transition their patient to another setting of careor provider of care or refers their patient to another provider of care shouldprovide summary care record for each transition of care or referral. [employer] Allergies Active Allergy Reactions Criticality Noted Date [...] Family History Cancer, Ovary Negative Family History Duson Syndrome Negative Family History Diethylstilbestrol Exposure Negative [...] Comments Blood Pressure 134/80 07/01/2013 3:52 PM CONSTRUCTION DIRECTOR Pulse 74 07/01/2013 3:52 PM CONSTRUCTION DIRECTOR Temperature 36.7 ??C (98.1 ??F) 07/06/2007 7:54 AM CS T C: 36.7 C Respiratory Rate 16 07/06/2007 7:54 AM CONSTRUCTION DIRECTOR Oxygen Saturation - - Inhaled Oxygen Concentration - - Weight 88.5 kg (195 lb) 07/01/2013 3:52 PM CONSTRUCTION DIRECTOR Height 175.3 cm (5' 9) 07/01/2013 3:52 PM CONSTRUCTION DIRECTOR Body Mass Index 28.8 07/01/2013 3:52 PM CONSTRUCTION DIRECTOR Plan of Treatment Health Maintenance Due Date Last Done Comments Colon Cancer Screening Plan Due 1970 Hep C Screening (Preventive Services) 1970 Adult Preventive Visit 1986 DTaP/Tdap/Td (1 - Tdap) 11/01/1987 HepB (1) 11/01/1987 Cervical Cancer Screening Due 05/07/2012 05/06/2012, 03/14/2010, 03/04/2009, Additional history exists Cholesterol 03/15/2016 03/15/2011, 02/21, 03/04/2009, Additional history exists Zoster/Shingles (1 of 2) 2018 Mammogram 07/18/2019 07/18/2018, 12/0 03/2017, 06/14/2016, Additional history exists COVID-19 Vaccine ( season) 2023 09/25/2020, 08/28/2020 Influenza (Season Ended) 2024 020, 05/27/2019, 04/30/2018, Additional history exists HIV Screening (Preventive [...] BILAT W CAD Routine 07/18/2018 9:36 AM CONSTRUCTION DIRECTOR Visit for screening mammogram ANATOMICAL PATH LIQUID BASED Routine 05/06/2012 12:00 PM CDT LIPID PANEL & DIRECT LDL (IF NEEDED) Routine 03/15/2011 7:54 AM CDT Screening for lipoid disorders HIV ANTIBODY Routine 05/19/2005 10:45 AM CDT from Last 3 Months or Most Recently Relevant to Health Maintenance Results * (ABNORMAL) MM Mammogram Screening Bilat W CAD (07/18/2018 9:36 AM CONSTRUCTION DIRECTOR) Anatomical Region Laterality Modality Breast Bilateral Mammography Impressions 07/18/2018 10:23 AM CONSTRUCTION DIRECTOR : ACR BI-RADS Category 0: Need Additional Imaging Evaluation RECOMMENDATION: Additional Mammographic Images and Ultrasound of the right breast. The results and recommendations of this examination will be communicated to the patient and the imaging center will attempt to schedule any recommended follow up with the patient. Narrative 07/18/2018 10:23 AM CONSTRUCTION DIRECTOR MM MAMMOGRAM SCREENING BILAT W CAD performed [...] breast tissue is unremarkable. Cecelia Mcdermott APRN, CHILD CARE SPECIALIST [facility] * Pap Smear (05/06/2012 12:00 PM CDT) 05/06/2012 12:0 0 PM CDT Narrative HP CONVERSION - 05/10/2012 3:12 PM CDT Final GYNECOLOGICAL CYTOLOGY REPORT Pathology #: [id number] ?Date Obtained: 05/06/2012 ? Date Received: 05/07/2012 [...] - 03/15/2011 9:13 AM CDT Performed at [facility], [address] [place] [address] Marcelino Quesada MD LAB_1 HP CONVERSION * HIV Antibody (05/19/2005 10:45 AM CDT) HIV 1/HIV 2 Non Reac Non Reac HP CONVERSION 05/19/2005 10:4 5 AM CDT Bri Palomares APRN, CHILD CARE SPECIALIST LAB_1 Performing Organization Address City/[facility]/ZIP Co de Phone Number HP CONVERSION from Last 3 Months or Most Recently Relevant to Health Maintenance Care Teams Diesel Truck Technician Relationship Specialty Start Date End Date Liang Ricketts APRN, DERIAN [id number] [place] [address] PCP - General 10/24/10
== END 2024-01-16 08:06 | disposition home or self-care (01) ==
LOC: NFLDREF 01-18 10:06
PROVIDERS: PCP Physician Assistant Medical; Referring Provider Physician Assistant Medical; Visit Provider Physician Assistant Medical
DX: E55.9 Vitamin D deficiency, unspecified (principal); E78.5 Hyperlipidemia, unspecified
CPT/HCPCS: 80061; 82306

== ENCOUNTER 2024-05-27 08:28 | Outpatient (CLI) | payer BC, SELFPAY ==
--- OUTSIDE RECORDS SUMMARY | 2024-05-29 13:42 | XMS_ITS | Clinical Summary ---
Author Organization [facility] Address [address] [place] [id number] Care Team Providers Care Coater Slate Name Role Phone Liang Ricketts APRN, DERIAN [...] for each transition of care or referral. [employer] Allergies Active Allergy Reactions Criticality Noted Date [...] Endometriosis 03/15/2011 Malignant neoplasm of skin 03/02/2008 Overview (03/14/2017): Basal Cell Ca Skin NOS Immunizations Name [...] Comments Blood Pressure 134/80 07/01/2013 3:52 PM SECONDARY SCHOOL PRINCIPAL Pulse 74 07/01/2013 3:52 PM [employer] S[employer] PRINCIPAL Temperature 36.7 ??C (98.1 ??F) 07/06/2007 7:54 AM CS T C: 36.7 C Respiratory Rate 16 07/06/2007 7:54 AM SECONDARY SCHOOL PRINCIPAL Oxygen Saturation - - Inhaled Oxygen Concentration - - Weight 88.5 kg (195 lb) 07/01/2013 3:52 PM SECONDARY SCHOOL PRINCIPAL Height 175.3 cm (5' 9) 07/01/2013 3:52 PM SECONDARY SCHOOL PRINCIPAL Body Mass Index 28.8 07/01/2013 3:52 PM SECONDARY SCHOOL PRINCIPAL Plan of Treatment Health Maintenance Due Date Last Done Comments Colon Cancer Screening Plan Due 1970 Hep C Screening (Preventive Services) 1970 Adult Preventive Visit 1986 DTaP/Tdap/Td (1 - Tdap) 11/01/1987 HepB (1) 11/01/1987 Cervical Cancer Screening Due 05/07/2012 05/06/2012, 03/14/2010, 03/04/2009, Additional history exists Cholesterol 03/15/2016 03/15/2011, /09/2009, 03/04/2009, Additional history exists Zoster/Shingles (1 of 2) 2018 Mammogram 07/18/2019 07/18/2018, 03/2017, 06/14/2016, Additional history exists COVID-19 Vaccine ( season) 2024 09/25/2020, 08/28/2020 Influenza (#1) 2024 05/03/2020, 11/2018, 04/30/2018, Additional history exists HIV Screening (Preventive Services) Completed 05/19/2005, 08/12/2004, 04/15/2002 HepA Aged Out No longer eligi ble based on patient's age to complete this topic Hib Aged Out No longer eligi ble based on patient's age to complete this topic IPV (Polio) Aged Out No longer eligi ble based on patient's age to complete this topic RSV Aged Out No longer eligi ble based on patient's age to complete this topic MCV4 Aged Out No longer eligi ble based on patient's age to complete this topic Pneumococcal Aged Out No longer eligi ble based on patient's age to complete this topic Procedures Procedure Name Priority Date/Time Associated Diagnosis Comments MM MAMMOGRAM SCREENING BILAT W CAD Routine 07/18/2018 9:36 AM [employer]ARY SCHOOL PRINCIPAL Visit for screening mammogram ANATOMICAL PATH LIQUID BASED Routine 05/06/2012 12:00 PM CDT LIPID PANEL & DIRECT LDL (IF NEEDED) Routine 03/15/2011 7:54 AM CDT Screening for lipoid disorders HIV ANTIBODY Routine 05/19/2005 10:45 AM CDT from Last 3 Months or Most Recently Relevant to Health Maintenance Results * (ABNORMAL) MM Mammogram Screening Bilat W CAD (07/18/2018 9:36 AM SECONDARY SCHOOL PRINCIPAL) Anatomical Region Laterality Modality Breast Bilateral Mammography Impressions 07/18/2018 10:23 AM SECONDARY SCHOOL PRINCIPAL : ACR BI-RADS Category 0: Need Additional Imaging Evaluation RECOMMENDATION: Additional Mammographic Images and Ultrasound of the right breast. The results and recommendations of this examination will be communicated to the patient and the imaging center will attempt to schedule any recommended follow up with the patient. Narrative 07/18/2018 10:23 AM SECONDARY SCHOOL PRINCIPAL MM MAMMOGRAM SCREENING BILAT W CAD performed [...] breast tissue is unremarkable. Cecelia Mcdermott APRN, COIN MACHINE ASSEMBLER [facility] * Pap Smear (05/06/2012 12:00 PM CDT) 05/06/2012 12:0 0 PM CDT Narrative HP CONVERSION - 05/10/2012 3:12 PM CDT Final GYNECOLOGICAL CYTOLOGY REPORT Pathology #: [id number] ?Date Obtained: 05/06/2012 ? Date Received: 05/07/2012 [...] End of Report Marcelino Quesada MD LAB_1 Performing Organization Address [facility] Co de Phone Number HP CONVERSION * (ABNORMAL) Lipid Panel and [...] 03/15/2011 9:13 AM CDT Performed at [facility], [address] [place] [address] Marcelino Quesada MD LAB_1 Performing Organization Address [facility] Co de Phone Number HP CONVERSION * HIV Antibody (05/19/2005 10:45 AM CDT) HIV 1/HIV 2 Non Reac Non Reac HP CONVERSION 05/19/2005 10:4 5 AM CDT Bri Palomares APRN, CNP LAB_1 Performing Organization Address [facility] de Phone Number HP CONVERSION from Last 3 Months or Most Recently Relevant to Health Maintenance Care Teams Coater Slate Relationship Specialty Start Date End Date Liang Ricketts, ASSISTANT PROJECT MANAGER, COIN MACHINE ASSEMBLER [id number] [place] [address] PCP - General 10/24/10
== END 2024-05-27 08:29 | disposition home or self-care (01) ==
LOC: NFLDREF 05-29 13:39
PROVIDERS: PCP Physician Assistant Medical; Referring Provider Physician Assistant Medical; Visit Provider Physician Assistant Medical
DX: E78.5 Hyperlipidemia, unspecified (principal)
CPT/HCPCS: 80061; 80076

== ENCOUNTER 2024-09-08 08:05 | Outpatient (CLI) | payer BC, SELFPAY | END 2024-09-08 08:06 | disposition home or self-care (01) | LOC: NFLDREF 09-10 06:37 | PROVIDERS: PCP Physician Assistant Medical; Referring Provider Physician Assistant Medical; Visit Provider Physician Assistant Medical | DX: E78.5 Hyperlipidemia, unspecified (principal); E03.9 Hypothyroidism, unspecified | CPT/HCPCS: 80053; 80061; 84443 ==

== ENCOUNTER 2024-09-26 08:05 | Outpatient (CLI) | payer BC, SELFPAY | END 2024-09-26 08:06 | disposition home or self-care (01) | LOC: MAMMO 08:06 | PROVIDERS: PCP Physician Assistant Medical; Visit Provider Physician Assistant Medical | DX: Z12.31 Encounter for screening mammogram for malignant neoplasm of breast (principal) | CPT/HCPCS: 77063; 77067 ==